=== PATIENT | male | born 1975 | race Caucasian/White ===

== ENCOUNTER 2023-08-19 05:19 | Emergency (ER) | payer MEDICAID ==
[~2023-08-19] VITALS: Ht 165.1 cm; Wt 59.0 kg
[2023-08-19 05:23] VITALS: BP 142/92; PULSE 85; RESP 20; O2SAT 98
== END 2023-08-19 06:12 | disposition home or self-care (01) ==
LOC: ER 06:00
DX: F10.10 Alcohol abuse, uncomplicated (principal); F17.200 Nicotine dependence, unspecified, uncomplicated; F15.10 Other stimulant abuse, uncomplicated; Y90.9 Presence of alcohol in blood, level not specified
CPT/HCPCS: 99283

== ENCOUNTER 2025-06-20 05:47 | Inpatient (IN) | payer OTHER ==
[~2025-06-20] VITALS: Ht 162.6 cm; Wt 61.7 kg
[~2025-06-20 05:47] MED LIST: FLUC100T PO; FOLI-43 PO; MULT-230 MT; SULF1TAB44 PO; THIA100T72 MT
[2025-06-20 06:05] VITALS: O2SAT 98
[2025-06-20] MEDS: CHLORDIAZEPOXIDE 25MG CAPSULE PO ONE (06:55)
[2025-06-20] MEDS: LORAZEPAM 2MG/ML UD SYRINGE IV NR (06:55)
[2025-06-20] MEDS: SODIUM CHLORIDE 0.9% 1,000 ML IV ONE (06:56)
[2025-06-20 07:01] LABS: HEMATOCRIT. 34.0 % (42.0-52.0); HEMOGLOBIN. 11.2 g/dL (14.0-18.0); MEAN PLATELET VOLUME 8.4 fl (7.4-10.4); RED BLOOD CELL COUNT 3.64 mill/uL (4.7-6.1); RED CELL DISTRIBUTION WIDTH 17.6 % (11.6-14.6)
[2025-06-20 07:24] LABS: PLATELET 30 x1000/uL (130-400)
[2025-06-20] MEDS: PIPERACILLIN/TAZO 3.375G/50ML 50 ML IV ONE (07:52)
[2025-06-20] MEDS: SODIUM CHLORIDE 0.9% (SEPSIS BOLUS) IV ONE (07:53)
[2025-06-20 08:02] LABS: CREATININE 0.7 mg/dL (0.6-1.3); UREA NITROGEN BLOOD 21 mg/dL (9-23)
[2025-06-20 08:03] LABS: TROPONIN I HIGH SENSITIVITY < 4 ng/L (3.0-53)
[2025-06-20 08:04] LABS: ASPARTATE AMINOTRANSFERASE 374 IU/L (<34); BILIRUBIN DIRECT 0.5 mg/dL (<=3.0); BILIRUBIN TOTAL 1.4 mg/dL (0.1-1.0)
[2025-06-20 08:05] LABS: PROTEIN TOTAL 9.8 g/dL (6.0-8.3)
[2025-06-20] MEDS: VANCOMYCIN 1G PREMIX 200 ML IV ONE (08:18)
[2025-06-20 08:23] LABS: INR 1.1
[2025-06-20 08:45] LABS: MONOCYTES % MANUAL 4.0 % (2.0-8.0)
[2025-06-20 08:48] LABS: BAND% 18.0 % (1.0-6.0); LYMPHOCYTES % MANUAL 32.0 % (20.0-50.0); NEUTROPHILS % MANUAL 46.0 % (45.0-75.0); PLATELET ESTIMATE MARKEDLY DECREASED
[2025-06-20] MEDS ORDERED: ACETAMINOPHEN 325MG TABLET PO PRN ×2 (12:00)
[2025-06-20] MEDS ORDERED: ONDANSETRON HCL 4MG/2ML INJ IV PRN (12:00)
[2025-06-20 12:21] LABS: CLARITY URINE CLEAR (CLEAR); COLOR URINE YELLOW (YELLOW); GLUCOSE URINE NEGATIVE (NEGATIVE); KETONES URINE 2+ (NEGATIVE); LEUKOCYTE ESTERASE URINE NEGATIVE (NEGATIVE); NITRITE URINE NEGATIVE (NEGATIVE); OCCULT BLOOD URINE TRACE (NEGATIVE); PH URINE 6.5 (4.5-8.0); PROTEIN URINE 1+ (NEGATIVE); SPECIFIC GRAVITY URINE 1.019 (1.005-1.030); UROBILINOGEN URINE 1.0 E.U./dL (0.2-1.0)
[2025-06-20 12:48] LABS: BACTERIA URINE NONE SEEN; SQUAMOUS EPITHELIAL CELL URINE NONE SEEN /lpf (RARE/1+); WBC URINE 0-2 /hpf (0-2); YEAST URINE NONE SEEN
[2025-06-20] MEDS: SULFAMETHOXAZOLE/TRIMETHOPRIM 400/80MG TAB PO SCH (15:54)
[2025-06-20] MEDS: FLUCONAZOLE 100MG TABLET PO SCH (15:55)
[2025-06-20] MEDS: CHLORDIAZEPOXIDE 25MG CAPSULE PO SCH ×2 (15:55→21:18)
[2025-06-20] MEDS: DEXT 5%/0.45% NACL 1000ML 1,000 ML IV SCH (15:58)
[2025-06-20 16:00] VITALS: BP 134/94; PULSE 98; RESP 16; TEMP 37.3; TEMP 37.3076; O2SAT 97
[2025-06-20] MEDS: MVI, ADULT NO.1 10 ML, FOLIC ACID 1 MG, THIAMINE HCL 100 MG in SODIUM CHLORIDE 0.9% 1,0... IV ONE (16:14)
[2025-06-20 20:00] VITALS: BP 131/76; PULSE 89; RESP 16; TEMP 37; O2SAT 98
[2025-06-20] MEDS: DOXYCYCLINE HYCLATE 100MG CAPSULE PO SCH (21:17)
[2025-06-20] MEDS: CEFTRIAXONE 2GM/50ML 50 ML IV SCH (21:17)
[2025-06-20] MEDS: FAMOTIDINE 20MG TABLET PO SCH (21:18)
[2025-06-21] VITALS: BP 134/87; PULSE 100; RESP 18; TEMP 36.5; O2SAT 98
[2025-06-21 04:00] VITALS: BP 106/83; PULSE 61; RESP 20; TEMP 36.9; O2SAT 99
[2025-06-21 07:40] LABS: INFLUENZA TYPE A Presumptive Negative (Pres. Neg.); INFLUENZA TYPE B Presumptive Negative (Pres. Neg.)
[2025-06-21 08:00] VITALS: BP 124/85; PULSE 92; RESP 18; TEMP 36.8; O2SAT 98
[2025-06-21 12:00] VITALS: BP 130/98; PULSE 100; RESP 20; TEMP 36.7; O2SAT 99
[2025-06-21 12:29] LABS: CREATININE 0.8 mg/dL (0.6-1.3)
[2025-06-21 12:30] LABS: UREA NITROGEN BLOOD 6 mg/dL (9-23)
[2025-06-21 12:32] LABS: PHOSPHORUS 1.1 mg/dL (2.5-4.9)
[2025-06-21] MEDS: MAGNESIUM 4 G PREMIX 100 ML IV SCH (14:11)
[2025-06-21 16:00] VITALS: BP 116/90; PULSE 97; RESP 17; TEMP 36.7; O2SAT 98
[2025-06-21] MEDS: POTASSIUM CHLORIDE 20MEQ TABLET SR PO SCH (16:08)
[2025-06-21 20:00] VITALS: BP_SYST 119; BP_SYST 126; BP_DIAS 77; BP_DIAS 90; PULSE 106; PULSE 89; RESP 18; TEMP 36.6; O2SAT 97; O2SAT 98
[2025-06-21] MEDS: CHLORDIAZEPOXIDE 25MG CAPSULE PO SCH (21:23)
[2025-06-21] MEDS: POTASSIUM PHOSPHATE 30 MMOL in SODIUM CHLORIDE 0.9% 490 ML IV SCH (21:23)
[2025-06-21] MEDS: ZOLPIDEM TARTRATE 5MG TABLET PO PRN (23:03)
[2025-06-22] VITALS: BP 117/91; PULSE 106; RESP 19; TEMP 36.8; O2SAT 98
[2025-06-22] MEDS: DIPHENHYDRAMINE 50MG/ML VIAL IV PRN (01:50)
[2025-06-22] MEDS: HALOPERIDOL LACTATE 5MG/ML VIAL IM PRN (02:43)
[2025-06-22] MEDS: DIPHENHYDRAMINE 50MG/ML VIAL IV NR (02:51)
[2025-06-22 04:00] VITALS: BP 101/77; PULSE 99; RESP 18; TEMP 36.6; O2SAT 99
[2025-06-22] MEDS: MAGNESIUM 4 G PREMIX 100 ML IV NR ×2 (05:50→21:47)
[2025-06-22 07:59] LABS: HEMATOCRIT. 34.7 % (42.0-52.0); HEMOGLOBIN. 11.4 g/dL (14.0-18.0); MEAN PLATELET VOLUME 8.6 fl (7.4-10.4); RED BLOOD CELL COUNT 3.75 mill/uL (4.7-6.1); RED CELL DISTRIBUTION WIDTH 18.3 % (11.6-14.6)
[2025-06-22 08:00] VITALS: BP 104/75; PULSE 82; RESP 18; TEMP 36.3; O2SAT 98
[2025-06-22 08:01] LABS: CREATININE 0.9 mg/dL (0.6-1.3)
[2025-06-22 08:02] LABS: UREA NITROGEN BLOOD 11 mg/dL (9-23)
[2025-06-22 08:04] LABS: PHOSPHORUS 3.7 mg/dL (2.5-4.9)
[2025-06-22 08:08] LABS: PLATELET 30 x1000/uL (130-400)
[2025-06-22 12:00] VITALS: BP 119/86; PULSE 89; RESP 18; TEMP 36.6; O2SAT 98
[2025-06-22 13:08] LABS: % CD 3 POS. LYMPHOCYTES 90.9 % (57.5-86.2); % CD 4 POS. LYMPHOCYTES 9.4 % (30.8-58.5); % CD 8 POS. LYMPH 78.7 % (12.0-35.5); ABSOLUTE BASOPHILS 0.0 x10E3/uL (0.0-0.2); ABSOLUTE CD 3 1000 /uL (622-2402); ABSOLUTE CD 4 HELPER 103 /uL (359-1519); ABSOLUTE CD 8 SUPPRESSOR 866 /uL (109-897); ABSOLUTE EOSINOPHILS 0.0 x10E3/uL (0.0-0.4); ABSOLUTE LYMPHOCYTES 1.1 x10E3/uL (0.7-3.1); ABSOLUTE MONOCYTES 0.2 x10E3/uL (0.1-0.9); ABSOLUTE NEUTROPHILS 0.9 x10E3/uL (1.4-7.0); BASOPHILS 0 % (Not Estab.); EOSINOPHILS 1 % (Not Estab.); HEMATOLOGY COMMENT Note: (.); IMMATURE GRANULOCYTES 0 % (Not Estab.); IMMATURE GRANULOCYTES ABSOLUTE 0.0 x10E3/uL (0.0-0.1); LYMPHOCYTES 49 % (Not Estab.); MEAN CORPUSCULAR HGB CONC. 34.7 g/dL (31.5-35.7); MONOCYTES 9 % (Not Estab.); NEUTROPHILS 41 % (Not Estab.); PLATELETS 26 x10E3/uL (150-450); RBC 4.12 x10E6/uL (4.14-5.80); RED CELL DISTRIBUTION WIDTH 16.6 % (11.6-15.4); WBC 2.2 x10E3/uL (3.4-10.8)
[2025-06-22 13:53] LABS: BAND% 6.0 % (1.0-6.0); EOSINOPHILS % MANUAL 2.0 % (0.0-5.0); LYMPHOCYTES % MANUAL 36.0 % (20.0-50.0); MONOCYTES % MANUAL 14.0 % (2.0-8.0); NEUTROPHILS % MANUAL 42.0 % (45.0-75.0); PLATELET ESTIMATE MARKEDLY DECREASED
[2025-06-22 16:00] VITALS: BP 116/80; PULSE 85; RESP 18; TEMP 36.7; O2SAT 98
[2025-06-22 20:00] VITALS: BP 133/71; PULSE 112; RESP 18; TEMP 36.4; O2SAT 98
[2025-06-23] VITALS: BP 141/93; PULSE 111; RESP 18; TEMP 36.3; O2SAT 100
[2025-06-23 04:00] VITALS: BP 126/87; PULSE 108; RESP 18; TEMP 36.5; O2SAT 99
[2025-06-23 08:00] VITALS: BP 107/81; PULSE 86; RESP 15; TEMP 36.1; O2SAT 99
[2025-06-23 12:00] VITALS: BP 124/79; PULSE 99; RESP 16; TEMP 36.5; O2SAT 99
[2025-06-23 16:00] VITALS: BP 115/83; PULSE 61; RESP 16; TEMP 36.6; O2SAT 95
[2025-06-23 20:00] VITALS: BP 121/91; PULSE 86; RESP 18; TEMP 36.6; O2SAT 98
[2025-06-24] VITALS: BP 127/94; PULSE 89; RESP 18; TEMP 36.7; O2SAT 98
[2025-06-24 04:00] VITALS: BP 111/84; RESP 18; TEMP 36.7
[2025-06-24 08:00] VITALS: BP 118/88; PULSE 90; RESP 16; TEMP 36.3; O2SAT 97
[2025-06-24 12:00] VITALS: BP 107/78; PULSE 81; RESP 16; TEMP 36.3; O2SAT 96
[2025-06-24 16:00] VITALS: BP 115/75; PULSE 84; RESP 17; TEMP 36.3; O2SAT 97
[2025-06-24 20:00] VITALS: BP 113/81; PULSE 96; RESP 19; TEMP 36.7; O2SAT 97
[2025-06-25] VITALS: BP 108/69; PULSE 90; RESP 18; TEMP 36.7; O2SAT 100
[2025-06-25 12:00] VITALS: BP 87/76; PULSE 89; RESP 20; TEMP 36.2; O2SAT 96
[2025-06-25 16:00] VITALS: BP 119/73; PULSE 84; RESP 21; TEMP 36.6; O2SAT 97
[2025-06-25 18:26] LABS: HEMATOCRIT. 38.4 % (42.0-52.0); HEMOGLOBIN. 12.5 g/dL (14.0-18.0); MEAN PLATELET VOLUME 8.7 fl (7.4-10.4); PLATELET 101 x1000/uL (130-400); RED BLOOD CELL COUNT 4.14 mill/uL (4.7-6.1); RED CELL DISTRIBUTION WIDTH 18.8 % (11.6-14.6)
[2025-06-25 18:39] LABS: CREATININE 0.8 mg/dL (0.6-1.3); UREA NITROGEN BLOOD 11 mg/dL (9-23)
[2025-06-25 18:41] LABS: PHOSPHORUS 3.9 mg/dL (2.5-4.9)
[2025-06-25 20:00] VITALS: BP 98/55; PULSE 80; RESP 19; TEMP 36.3; O2SAT 95
[2025-06-25] MEDS: MAGNESIUM 4 G PREMIX 100 ML IV SCH (21:01)
[2025-06-25 21:21] LABS: BASOPHILS % MANUAL 1.0 % (0.0-2.0); EOSINOPHILS % MANUAL 1.0 % (0.0-5.0); LYMPHOCYTES % MANUAL 47.0 % (20.0-50.0); MONOCYTES % MANUAL 18.0 % (2.0-8.0); NEUTROPHILS % MANUAL 33.0 % (45.0-75.0); PLATELET ESTIMATE DECREASED
[2025-06-26] VITALS (7 sets, daily range): BP systolic 101–115; BP diastolic 72–90; PULSE 72–85; RESP 16–20; TEMP 36.3–36.9; O2SAT 96–99
[2025-06-26 06:08] LABS: CREATININE 0.7 mg/dL (0.6-1.3)
[2025-06-26 06:09] LABS: UREA NITROGEN BLOOD 15 mg/dL (9-23)
[2025-06-26 06:11] LABS: PHOSPHORUS 4.2 mg/dL (2.5-4.9)
[2025-06-26 06:33] LABS: HEMATOCRIT. 32.7 % (42.0-52.0); HEMOGLOBIN. 10.9 g/dL (14.0-18.0); MEAN PLATELET VOLUME 8.4 fl (7.4-10.4); PLATELET 99 x1000/uL (130-400); RED BLOOD CELL COUNT 3.57 mill/uL (4.7-6.1); RED CELL DISTRIBUTION WIDTH 18.4 % (11.6-14.6)
[2025-06-26 16:58] LABS: EOSINOPHILS % MANUAL 4.0 % (0.0-5.0); LYMPHOCYTES % MANUAL 51.0 % (20.0-50.0); MONOCYTES % MANUAL 23.0 % (2.0-8.0); NEUTROPHILS % MANUAL 22.0 % (45.0-75.0); PLATELET ESTIMATE SLIGHTLY DECREASED
[2025-06-27] VITALS: BP 108/82; PULSE 89; RESP 18; TEMP 36.4; O2SAT 98
[2025-06-27] MEDS ORDERED: TEMAZEPAM 15MG CAPSULE PO PRN (01:45)
[2025-06-27 04:00] VITALS: BP 107/75; PULSE 89; RESP 18; TEMP 36.2; O2SAT 96
[2025-06-27 08:00] VITALS: BP 107/62; PULSE 73; RESP 18; TEMP 36.6; O2SAT 99
[2025-06-27 20:00] VITALS: BP 106/59; PULSE 78; RESP 19; TEMP 36.5; O2SAT 96
[2025-06-28] VITALS: BP 96/57; PULSE 87; RESP 19; TEMP 37.5; O2SAT 98
[2025-06-28 04:00] VITALS: BP 103/56; PULSE 75; RESP 19; TEMP 36.2; O2SAT 96
[2025-06-28 08:00] VITALS: BP 106/77; PULSE 87; RESP 20; TEMP 36.6; O2SAT 98
== END 2025-06-28 12:27 | disposition left against medical advice (07) | DRG 890 ==
LOC: ER 05:47 → 5EST 08:22 → EDBEDREQ 08:22 → EDBEDREQSVC 08:23 → ENRESERV 11:39 → 6WST 12:58 → 7EST 06-27 10:06
PROVIDERS: ADMIT Internal Medicine; ATTEND Internal Medicine
DX: A41.9 Sepsis, unspecified organism (principal); B20 Human immunodeficiency virus [HIV] disease; G92.8 Other toxic encephalopathy; R65.21 Severe sepsis with septic shock; F10.131 Alcohol abuse with withdrawal delirium; D69.6 Thrombocytopenia, unspecified; E87.20 Acidosis, unspecified; E83.39 Other disorders of phosphorus metabolism; D72.819 Decreased white blood cell count, unspecified; D72.820 Lymphocytosis (symptomatic); E83.42 Hypomagnesemia; E87.6 Hypokalemia; Z53.29 Procedure and treatment not carried out because of patient's decision for other reasons; Y90.9 Presence of alcohol in blood, level not specified; Z20.822 Contact with and (suspected) exposure to COVID-19; J20.9 Acute bronchitis, unspecified; Z79.899 Other long term (current) drug therapy
CPT/HCPCS: 36415; 71045; 80048; 80076; 81003; 83605; 83735; 84100; 84145; 84484; 85025; 86359; 86360; 86635; 87015; 87045; 87426; 87427; 87449; 87493; 87804; 93005; 97162; 99291; A4606; J0696; J1200; J1630; J2060; J2543; J3373; J3411; J3475; J3490; J7030; J7040

== ENCOUNTER 2025-09-17 22:02 | Emergency (ER) | payer OTHER ==
[~2025-09-17] VITALS: Ht 160 cm; Wt 69.3 kg
[2025-09-17 22:04] VITALS: BP 124/87; PULSE 112; RESP 18; TEMP 36.8; O2SAT 96
[2025-09-18] MEDS ORDERED: NAPR-1176 MT (00:30)
== END 2025-09-18 00:42 | disposition home or self-care (01) ==
LOC: ER 22:02
DX: S02.2XXA Fracture of nasal bones, initial encounter for closed fracture (principal); Z79.1 Long term (current) use of non-steroidal anti-inflammatories (NSAID); Y04.0XXA Assault by unarmed brawl or fight, initial encounter; Y93.89 Activity, other specified; Y92.89 Other specified places as the place of occurrence of the external cause; Y99.8 Other external cause status
CPT/HCPCS: 70486; 99284